=== PATIENT | male | born 1945 | race Caucasian/White ===

== ENCOUNTER 2016-09-19 06:54 | Inpatient (IN) ==
[2016-09-14 16:29] LABS: Appearance,Urine CLEAR; Bilirubin,Urine NEG (NEG); Color,Urine YELLOW; Glucose,Urine (UA) NEGATIVE (NEG); Leukocyte Esterase,Urine NEG /uL (NEG); Nitrate,Urine NEG (NEG); Protein,Urine NEG (NEG); Specific Gravity,Urine 1.018 (1.000-1.035); Urine Blood NEG mg/dL (<0.03); Urobilinogen,Urine NEG (NEG)
[2016-09-14 17:12] LABS: Basophils # (Auto) 0 K/mcL (0.0-0.3); Basophils % (Auto) 0.3 % (0.0-2.0); Eosinophils # (Auto) 0.2 K/mcL (0.0-0.7); Eosinophils % (Auto) 1.9 % (0.0-7.0); Granulocytes % (Auto) 74.4 % (38.0-78.0); Lymphocytes # (Auto) 1.5 K/mcL (1.5-4.8); Lymphocytes % (Auto) 13.1 % (15.5-49.0); Mean Cell Volume 97.1 fL (80.0-100.0); Mean Corpuscular HGB Conc 33.2 g/dL (31.0-36.0); Mean Corpuscular Hemoglobin 32.2 pg (26.0-34.0); Monocytes # (Auto) 1.1 K/mcL (0.1-0.9); Monocytes % (Auto) 10.3 % (1.0-12.0); Platelet Count 343 K/mcL (140-440); RBC 4.27 M/mcL (4.50-5.90); Red Cell Distribution Width 15.4 % (11.5-14.5)
[2016-09-14 17:54] LABS: Blood Urea Nitrogen 31 mg/dl (8-23)
[~2016-09-19 06:54] MED LIST: PREGABALIN 75 MG CAPSULE PO SCH; oxyCODONE 10 MG TAB.ER.12H PO SCH
[2016-09-19] MEDS ORDERED: GENTAMICIN SULFATE 800 MG/20 ML VIAL IR ONE (08:59)
[2016-09-19] MEDS ORDERED: CLINDAMYCIN 900 MG in DEXTROSE 5% IN WATER 50 ML IV SCH ×3 (09:00→17:00)
[2016-09-19] MEDS ORDERED: fentaNYL 250 MCG/5 ML VIAL IV ONE (09:15)
[2016-09-19] MEDS ORDERED: LIDOCAINE HCL/PF 100 MG/5 ML SYRINGE IV ONE (09:15)
[2016-09-19] MEDS ORDERED: ROCURONIUM 10 MG/ML ML IV ONE (09:15)
[2016-09-19] MEDS ORDERED: MIDAZOLAM 5 MG/5 ML VIAL IV ONE (09:15)
[2016-09-19] MEDS ORDERED: ONDANSETRON 4 MG/2 ML VIAL IV ONE (09:15)
[2016-09-19] MEDS ORDERED: DEXAMETHASONE 10 MG/ML VIAL IV ONE (09:15)
[2016-09-19] MEDS ORDERED: SUCCINYLCHOLINE 20 MG/ML ML IV ONE (09:15)
[2016-09-19] MEDS ORDERED: TRANEXAMIC ACID 1,000 MG/10 ML VIAL IV ONE ×2 (09:15→11:12)
[2016-09-19] MEDS ORDERED: METOPROLOL TARTRATE 5 MG/5 ML VIAL IV ONE (09:15)
[2016-09-19] MEDS ORDERED: PROPOFOL 200 MG/20 ML VIAL IV ONE (09:15)
[2016-09-19] MEDS ORDERED: ROPIVACAINE HCL/PF 30 ML VIAL IJ ONE (09:15)
[2016-09-19] MEDS ORDERED: PHENYLEPHRINE 10 MG/ML VIAL IV ONE (09:15)
[2016-09-19] MEDS ORDERED: PROMETHAZINE 25 MG/ML VIAL IV PRN (10:34)
[2016-09-19] MEDS ORDERED: LACTATED RINGERS 250 ML IV PRN (10:34)
[2016-09-19] MEDS ORDERED: PROMETHAZINE 25 MG/ML VIAL IM PRN (10:34)
[2016-09-19] MEDS ORDERED: NALOXONE HCL 0.4 MG/ML VIAL IV PRN (10:34)
[2016-09-19] MEDS ORDERED: MEPERIDINE 25 MG/ML SYRINGE IV PRN (10:34)
[2016-09-19] MEDS ORDERED: BENZOCAINE/MENTHOL 1 LOZENGE PO PRN ×3 (10:34→12:45)
[2016-09-19] MEDS ORDERED: fentaNYL 100 MCG/2 ML VIAL IV PRN (10:34)
[2016-09-19] MEDS ORDERED: HYDROmorphone 2 MG/ML SYRINGE IV PRN ×3 (10:34→12:45)
[2016-09-19] MEDS ORDERED: ONDANSETRON 4 MG/2 ML VIAL IV PRN ×3 (10:34→12:45)
[2016-09-19] MEDS ORDERED: METHOCARBAMOL 1,000 MG/10 ML VIAL IV PRN (10:34)
[2016-09-19] MEDS ORDERED: FLUMAZENIL 0.1 MG/ML ML IV PRN (10:34)
[2016-09-19] MEDS ORDERED: MEPERIDINE 50 MG/ML SYRINGE IM PRN (10:34)
[2016-09-19] MEDS ORDERED: IPRATROPIUM/ALBUTEROL 3 ML AMPUL.NEB NEB PRN (10:34)
[2016-09-19] MEDS ORDERED: diphenhydrAMINE 50 MG/ML VIAL IV PRN (10:34)
[2016-09-19] MEDS ORDERED: ePHEDrine 50 MG/ML AMPUL IV PRN (10:34)
[2016-09-19] MEDS ORDERED: LACTATED RINGERS 1,000 ML IV SCH (10:45)
--- NOTE | 2016-09-19 11:10 | Brief Operative Note ---
Date of procedure: 09/19/16 Pre-op diagnosis: right shoulder oa, biceps tendonitis Post-op diagnosis: same Procedure: right total shoulder arthroplasty, biceps tenodesis soft tissue Grafts/Implants: Yes Anesthesia: GETA Complications: none Surgeon: Isdiro Victoria Aboriginal Liaison Officer: Manda Kevin Estimated blood loss (cc): 100 Specimens Removed/Pathology: none sent Condition: stable Disposition: PACU
--- NOTE | 2016-09-19 11:11 | Discharge Summary ---
Ortho Discharge - TSA - Patient Instructions Diet: Regular Diet Activity: non weight bearing Total Shoulder Protocol: Leave immobilizer in place except for bathing and ROM. Abduction pillow. Continue to wear sling until seen by physician. Codman Pendulum : These exercises use momentum produced by your body to move your shoulder joint. Bend your knees and shift your weight to your front leg, then back, allowing your arm to swing in the same directions. Using the same technique, alternately shift your weight between your right and left legs, allowing your arm to swing from side to side. These exercises are also performed in counterclockwise and clockwise circular motions. Typically these exercises are performed several times per day, for a set number repetitions or minutes, such as 20 times in a row or 5 minutes at a time. Dressing Care: May shower in 2 days - Follow Up Plan Disposition: Home, Self-Care Prognosis: Good Rehab Potential: Good I certify that the patient requires SNF services: No Overall status at discharge: patient is progressing back to baseline
[2016-09-19] MEDS ORDERED: KETOROLAC 15 MG/ML VIAL IV PRN ×2 (11:12→12:45)
[2016-09-19] MEDS ORDERED: METHOCARBAMOL 750 MG TABLET PO PRN ×2 (11:12→12:45)
[2016-09-19] MEDS ORDERED: POLYETHYLENE GLYCOL 3350 17 GM PACKET PO PRN ×2 (11:12→12:45)
[2016-09-19] MEDS ORDERED: ONDANSETRON ODT 4 MG TABLET SL PRN ×2 (11:12→12:45)
[2016-09-19] MEDS ORDERED: FLEETS ADULT ENEMA PR PRN ×2 (11:12→12:45)
[2016-09-19] MEDS ORDERED: HYDROcodone/APAP 10/325MG TABLET PO PRN (11:12)
[2016-09-19] MEDS ORDERED: BISACODYL 10 MG SUPP.RECT PR PRN ×2 (11:12→12:45)
[2016-09-19] MEDS ORDERED: MAGNESIUM HYDROXIDE 30 ML ORAL.SUSP PO PRN ×2 (11:12→12:45)
[2016-09-19] MEDS ORDERED: ceFAZolin 1 GM VIAL IV SCH (11:15)
[2016-09-19] MEDS ORDERED: 0.9 % SODIUM CHLORIDE 1,000 ML IV SCH (11:15)
--- NOTE | 2016-09-19 12:22 | Operative Note ---
DATE OF OPERATION: 09/19/2016 PREOPERATIVE DIAGNOSES: 1. Right shoulder osteoarthritis. 2. Right shoulder proximal biceps tendinitis. POSTOPERATIVE DIGNOSES: 1. Right shoulder osteoarthritis. 2. Right shoulder proximal biceps tendinitis. PROCEDURES: 1. Right total shoulder arthroplasty. 2. Right shoulder proximal biceps soft tissue tenodesis. SURGEON: Hayden Victoria M.D. EQUALIZER OPERATOR SURGEON: Manda Kevin PA-C ANESTHESIA: General. ESTIMATED BLOOD LOSS: 100 mL COMPLICATIONS: None noted. SPECIMENS REMOVED: None. DRAINS: None. IMPLANTS: DePuy CMW2 bone cement 20 grams, Global Dundee Peg Glenoid, Premieron X-Linked polyethylene 52 mm, DePuy Global Unite anatomic proximal body 135 degrees size 18 porocoat, DePuy Global Unite porocoat standard stem size 16, DePuy Global Unite eccentric humeral head size 52 x 21. INDICATIONS: The patient has had a longstanding history of worsening pain in the shoulder that has failed conservative treatment. Radiographs have confirmed advanced degenerative joint disease. After a long discussion about treatment options, the patient elected to proceed with a total shoulder arthroplasty. The risks and benefits were discussed with the patient in detail including, but not limited to, the risks of anesthesia, problems with the heart or lungs related to anesthesia, infection, compromise or injury to the nerves and blood vessels, deep venous thrombosis, pulmonary embolism, pneumonia, continued pain after surgery, worsening pain or symptoms after surgery, swelling, loss of motion, instability, fracture, arm length discrepancy, and need for repeat surgery. DESCRIPTION OF PROCEDURE: The patient was seen in the pre-anesthesia waiting room where all questions were answered and the correct side and site were identified and marked. The patient was transferred to the operating room and administered the anesthetic and given pre-operative antibiotics. A time-out was then called. The patient was placed in the modified beach chair position with all prominences well padded. The extremity was prepped and draped from the fingers up to the neck. A standard deltopectoral skin incision was created. Dissection was carried down to the deltopectoral groove and the cephalic vein was isolated medially and retracted laterally with the deltoid. Retractors were placed and the coracobrachialis was split up to the coracoacromial ligament allowing retraction of the conjoined tendon. We split the subscapularis 1 cm medial to the bicipital groove and extended the split into the rotator interval. This was tagged for later repair. The biceps was cut and a soft tissue tenodesis was performed into the anterior shoulder with #2 FiberWire. A capsular release was performed in a posterior subperiosteal direction along the humerus. The humeral head was then dislocated. Osteophytes were removed around the humeral neck and a capsular release was performed. Attention was then turned to the glenoid. Retractors were placed for optimal visualization and the labrum was excised in its entirety. A centralizing Steinmann pin was placed just into the posterior inferior quadrant in a standard fashion. We reamed over the pin to remove all the cartilage and get to a good base for the prosthesis. The drill was then placed over for the central peg. The glenoid was sized and surface was inspected to confirm conformity. The template base-plate was used to drill the three additional pegs, anchoring each with the anti-rotation peg. All bleeding was stopped with epinephrine soaked sponges. Next, we then cemented the anchor peg glenoid with DBX bone paste placed around the anchor peg and Palacos cement in the three additional peg holes. We allowed the cement to harden and checked the stability and placement of the glenoid. Attention was then turned back to the humerus. The humeral head was sized and version of the head was matched. We placed the guide evaluating the quadrants and drilled a pin through the center of the head exiting the lateral cortex of the proximal humerus. We then reamed the humeral head with appropriate depth. The bone quality was adequate. The humeral head trial was placed and fit appropriately. The cruciate punch was placed into the drilled canal. The press fit humeral prosthesis was impacted into place. A final check confirmed adequate motion, tension, and stability. We irrigated with 3 liters of antibiotic saline and closed the subscapularis with # 2 FiberWire. We irrigated again and closed the deltopectoral interval with several # 0 Vicryl figure of eight sutures. The subcutaneous layer was closed with 2-0 Vicryl and the skin was closed with 4-0 Monocryl in a subcuticular fashion. A sterile pressure dressing was applied and the patient was placed into an abduction sling. All needle and sponge counts were correct. The patient was transferred to the recovery room in stable condition. YANNI:[email or web address] Job ID: [id number] Doc ID: [id number] Hayden Victoria MD
[2016-09-19] MEDS ORDERED: LORazepam 2 MG/ML VIAL IV PRN (12:40)
[2016-09-19] MEDS ORDERED: oxyCODONE 10 MG TAB.ER.12H PO SCH (12:45)
[2016-09-19] MEDS ORDERED: PREGABALIN 75 MG CAPSULE PO SCH (12:45)
--- NOTE | 2016-09-19 13:26 | XRay Report ---
CLINICAL INFORMATION: Reason for Exam:Post-OP Total Shoulder COMPARISON: None. FINDINGS: Shoulder arthroplasty changes show anatomic alignment. No osseous abnormality. Soft tissues swelling seen as expected IMPRESSION: Negative Interpreted and Authenticated by: Isidro Dumont 09/19/16
[2016-09-19] MEDS: 0.9 % SODIUM CHLORIDE 10 ML SYRINGE IV SCH ×2 (13:55→23:17)
[2016-09-19] MEDS: 0.9 % SODIUM CHLORIDE 1,000 ML IV SCH ×2 (13:56→19:54)
[2016-09-19] MEDS ORDERED: 0.9 % SODIUM CHLORIDE 10 ML SYRINGE IV SCH (14:00)
[2016-09-19] MEDS: CLINDAMYCIN 900 MG in DEXTROSE 5% IN WATER 50 ML IV SCH (17:13)
[2016-09-19] MEDS ORDERED: traMADol 50 MG TABLET PO PRN (20:58)
[2016-09-19] MEDS ORDERED: SENNOSIDES 1 TABLET PO SCH (21:00)
[2016-09-19] MEDS ORDERED: DOCUSATE SODIUM 100 MG CAPSULE PO SCH (21:00)
[2016-09-19] MEDS ORDERED: ALBUTEROL SULFATE 1 PUFF INHALER INH PRN (21:00)
[2016-09-19] MEDS: METOPROLOL TARTRATE 50 MG TABLET PO SCH (21:54)
[2016-09-19] MEDS: DOCUSATE SODIUM 100 MG CAPSULE PO SCH (21:54)
[2016-09-19] MEDS: SENNOSIDES 1 TABLET PO SCH (21:55)
[2016-09-19] MEDS: Triazolam 0.25 MG PO PRN (21:57)
[2016-09-20] MEDS: HYDROcodone/APAP 10/325MG TABLET PO PRN ×5 (00:08→18:49)
[2016-09-20] MEDS: CLINDAMYCIN 900 MG in DEXTROSE 5% IN WATER 50 ML IV SCH (00:31)
[2016-09-20] MEDS: 0.9 % SODIUM CHLORIDE 1,000 ML IV SCH (04:04)
[2016-09-20] MEDS: 0.9 % SODIUM CHLORIDE 10 ML SYRINGE IV SCH ×3 (05:07→22:01)
--- NOTE | 2016-09-20 06:44 | Orthopedic Progress Note ---
Subjective Patient information: Note initiated : 09/20/16 at 6:43 am Service Date, if different from initiated Date: [] Patient: Matias Collado 71 y/o M admitted on 09/19/16 for Right Total Shoulder Arthroplasty, Poss Reverse, . Chief Complaint: [] Interval history: doing ok. pain under control Objective Vital signs: Vital Signs Temp Pulse Pulse Resp BP Pulse Ox 09/20/16 04:00 97.7 F 83 18 119/77 96 09/20/16 00:00 98.1 F 79 18 120/80 94 09/19/16 21:15 94 09/19/16 21:14 94 09/19/16 20:00 98.1 F 89 18 121/79 95 09/19/16 19:14 86 09/19/16 14:55 97.9 F 18 130/86 96 09/19/16 14:15 97.8 F 18 118/81 94 09/19/16 13:40 97.9 F 18 113/76 94 09/19/16 13:11 18 113/79 93 09/19/16 12:56 20 121/77 90 09/19/16 12:41 97.6 F 20 115/77 93 09/19/16 12:26 97.6 F 20 117/84 93 09/19/16 12:18 97.8 F 120 H 12 106/83 93 09/19/16 12:03 97.5 F 124 H 12 110/68 93 09/19/16 11:47 97.2 F 129 H 12 95/69 93 09/19/16 11:43 97.6 F 131 H 12 109/64 94 09/19/16 11:38 97.2 F 132 H 12 91/61 94 09/19/16 11:33 97.2 F 111 H 12 84/62 94 09/19/16 07:28 97.1 F 16 124/88 95 Intake and Output 09/19/16 09/20/16 09/20/16 21:59 05:59 13:59 Intake Total 456 / 456 1960 / 1960 1493 / 1493 Output Total 900 / 900 500 / 500 Balance -444 / -444 1460 / 1460 1493 / 1493 Intake: IV 56 / 56 1000 / 1000 1493 / 1493 Sodium Chloride 0.9% 1, 1000 / 1000 000 ml @ 125 mls/hr IV . Q8H KEN Rx#:[id number] Cleocin 900 mg In 56 / 56 Dextrose 5% in Water 50 ml @ 100 mls/hr IV Q8H KEN Rx#:[id number] Oral 400 / 400 960 / 960 Output: Void Amount 900 / 900 500 / 500 Other: Weight 211 lb 3.2 oz Intake & Output: Intake & Output 09/19/16 09/20/16 09/20/16 21:59 05:59 13:59 Intake Total 456 / 456 1960 / 1960 1493 / 1493 Output Total 900 / 900 500 / 500 Balance -444 / -444 1460 / 1460 1493 / 1493 Weight 211 lb 3.2 oz Intake: IV 56 / 56 1000 / 1000 1493 / 1493 Sodium Chloride 0.9% 1, 1000 / 1000 000 ml @ 125 mls/hr IV . Q8H KEN Rx#:[id number] Cleocin 900 mg In 56 / 56 Dextrose 5% in Water 50 ml @ 100 mls/hr IV Q8H KEN Rx#:[id number] Oral 400 / 400 960 / 960 Output: Void Amount 900 / 900 500 / 500 Incision: Yes healing Incision clean and dry: Yes Dressing: Yes clean, Yes dry, Yes intact Weight bearing status: non Neurological exam IM: Yes alert, Yes oriented X3, Yes motor sensory intact, Yes neurovascular intact Extremities exam IM: No calf tenderness, Yes Foot pink and warm, Yes neurovascular intact - Labs CBC & BMP: 09/20/16 05:00 09/14/16 15:07 Labs: 09/20/16 09/14/16 05:00 15:07 Hgb 12.1 L 13.8 Hct 34.5 L 41.5 Assessment and Plan (1) Osteoarthritis, shoulder pod 1 s/p tsa doing well pain control pt home today Status: Acute
[2016-09-20] MEDS: DILTIAZEM 120 MG CAP.XL.24H PO SCH ×2 (07:28→07:37)
[2016-09-20] MEDS: ASPIRIN 325 MG ENTERIC COATED TABLET PO SCH (07:59)
[2016-09-20] MEDS: FERROUS SULFATE 325 MG TABLET PO SCH (07:59)
[2016-09-20] MEDS: LOSARTAN 50 MG TABLET PO SCH (07:59)
[2016-09-20] MEDS: ALLOPURINOL 300 MG TABLET PO SCH (07:59)
[2016-09-20] MEDS: METOPROLOL TARTRATE 50 MG TABLET PO SCH ×2 (07:59→22:01)
[2016-09-20] MEDS: DOCUSATE SODIUM 100 MG CAPSULE PO SCH ×2 (08:00→22:01)
[2016-09-20] MEDS ORDERED: 0.9 % SODIUM CHLORIDE 250 ML IV ONE (15:55)
--- NOTE | 2016-09-20 16:04 | Internal Medicine Consult Note ---
Medical - CN: HPI - Data of Consult Consult date: 09/20/16 Requesting Physician: Isidro Victoria Primary Care Provider: Joey Mendoza Family Provider: Joey Mendoza - Consult Narrative Reason for consult: Afib with RVR History of present illness: Mr. Collado is a 71 year old male with h/o CHF, HTN, afib, Ankylosing spondilitis , who was admitted to the Ortho service for right shoulder arthroplasty. The patient underwent the procedure yesterday, after the procedure the patient was in Afib with RVR, he was also short of breath and needed to use his bipap. This AM when the PT tried to work with him the patients HR went up again to 140- 150. Medicine was therefore consulted for further evaluation. The patient has h/o chf and afib, which is a chr issue, he follows with Dr Robins. He takes metoprolol 50mg bid, [id number] qd, for rate control, he is also on ASA 325 for anticoagulation/ cva prophylaxis as per his rn utilization management um. He missed his dose yesterday it seems, and was NPO yesterday, he did not take ASA for 7 days prior to surgery. He also has ankylosing spondilitys and reports moderate to severe levels of pain in the shoulder and hte back. This AM his HR h as been much better than yesterdfay and his resting HR is at baseline. Only when he moves or is excited does his HR go up. He denies any dizziness, chest pain, palpitations, shortness of breath. CC: Isidro Victoria Review of systems: CONSTITUTIONAL: No weight loss, fever, chills, weakness or fatigue. HEENT: Eyes: No visual loss, blurred vision, double vision or yellow sclerae. Ears, Nose, Throat: No hearing loss, sneezing, congestion, runny nose or sore throat. SKIN: No rash or itching. CARDIOVASCULAR: No chest pain, chest pressure or chest discomfort. No palpitations or edema. RESPIRATORY: No shortness of breath, cough or sputum. GASTROINTESTINAL: No nausea, vomiting or diarrhea or constipation. No abdominal pain or blood in stools No Mary Jo. GENITOURINARY: Denies Burning on urination. Blood in urine, or foul smelling urine NEUROLOGICAL: No headache, dizziness, syncope, paralysis, tremors, numbness or tingling in the extremities. No change in bowel or bladder control. MUSCULOSKELETAL: chr back pain and stiffness, right shoulder pain. HEMATOLOGIC: No bleeding or bruising. No enlarged nodes PSYCHIATRIC: No depression or anxiety. ENDOCRINOLOGIC: No reports of sweating, cold or heat intolerance. No polyuria or polydipsia. ALLERGIES: No hives, eczema or rhinitis. Skin: No rash, no jaundice, cyanosis or pallor. Medical - CN: [facility] Medical history: Medical History (Last Updated 09/20/16 @ 06:44 by Isidro Victoria MD) Chronic kidney disease, stage III (moderate) (Chronic) Hypercalcemia (Chronic) Hypertensive renal disease (Chronic) Chronic kidney disease, stage II (mild) (Chronic) Hyponatremia (Chronic) Acute renal failure (Chronic) Dyslipidemia (Acute) Hypertension (Chronic) Adhesive capsulitis of shoulder (Acute) Erectile dysfunction (Acute) Adenocarcinoma of prostate (Acute) Osteopenia (Acute) Osteoarthritis (Acute) Atrial fibrillation (Acute) Hemoptysis (Acute) Internal hemorrhoids (Acute) Edema (Acute) Anemia (Acute) Other seborrheic dermatitis (Acute) Telogen effluvium (Acute) Gynecomastia, male (Acute) Tachycardia (Acute) Reactive airway disease (Acute) Decreased hearing (Acute) Essential tremor (Acute) Surgical history: Past Surgical History (Last Updated 08/17/16 @ 14:19 by [place]) Bowel perforation (Acute 06/07/05) History of radiation therapy (Acute) Family history: reviewed and not pertinent Medical - CN: Meds Home Medications Medication Instructions Recorded Confirmed Type albuterol sulfate HFA 90 90 mcg INHALATION Q6H PRN 02/23/15 09/19/16 History mcg/actuation aerosol inhaler aspirin 325 mg tablet,delayed 325 mg PO QDAY 02/23/15 09/19/16 History release diltiazem CD 120 mg 120 mg PO QDAY 90 Days 03/02/15 09/19/16 History capsule,extended release 24 hr metoprolol tartrate 50 mg tablet 50 mg PO BID tab 03/02/15 09/19/16 History ferrous sulfate 325 mg (65 mg 325 mg PO DAILY tab 03/31/15 09/19/16 History iron) tablet multivitamin tablet 1 tab PO QDAY tab 03/31/15 09/19/16 History allopurinol 300 mg tablet 300 mg PO QDAY 07/13/16 06/20/17 History losartan 50 mg tablet 50 mg PO QDAY tab 10/13/15 09/19/16 History Triazolam [Halcion] 0.25 mg PO HSP PRN 09/14/16 09/19/16 History traMADol [Ultram] 50 mg PO TIDP PRN 09/14/16 09/19/16 History HYDROcodone/APAP 10/325MG [[place] 1 - 2 tab PO Q4H PRN #60 tablet 09/19/16 Rx 10/325Mg] Allergies Allergy/AdvReac Type Severity Reaction Status Date / Time cephalexin Allergy Mild Itching Verified 09/19/16 09:02 codeine Allergy Mild Rash Verified 09/14/16 14:54 morphine Allergy Mild Itching Verified 09/14/16 14:48 colchicine [From Colcrys] Allergy Unknown Unknown Verified 09/14/16 14:54 hydrochlorothiazide Allergy Unknown Unknown Verified 09/14/16 14:54 [From Zestoretic] lisinopril [From Zestoretic] Allergy Unknown Unknown Verified 09/14/16 14:54 rivaroxaban [From Xarelto] Allergy Unknown Unknown Verified 09/14/16 14:54 Sulfa (Sulfonamide Allergy Unknown Unknown Verified 09/14/16 14:54 Antibiotics) Medical - CN: Exam - Constitutional Vitals: Temp Pulse Resp BP Pulse Ox 98.2 F 89 18 113/72 96 09/20/16 12:00 09/20/16 12:00 09/20/16 12:00 09/20/16 12:00 09/20/16 12:00 Exam: GENERAL: The patient is a well-developed, well-nourished in no apparent distress. Is alert and oriented x3. VITAL SIGNS: Reviewed and as noted elsewhere. HEENT: Head is normocephalic and atraumatic. Extraocular muscles are intact. Pupils are equal, round, and reactive to light. Nares appeared normal. Mouth appears any without lesions. Mucous membranes are moist. NECK: Normal to inspection, Supple, No lymphadenopathy or thyromegaly. LUNGS: Air entry equal on both sides, no wheezing, crackles or rhonchi noted. No accessory muscles of respiration HEART: Regular rate and rhythm irregularl, S1 and S2 heard, no Gallop, S3 or Rub Noted, No Gross murmur heard. ABDOMEN: Soft, nontender, and nondistended. Positive bowel sounds. No hepatosplenomegaly was noted. EXTREMITIES: No cyanosis, clubbing, rash, lesions or edema. NEUROLOGIC: Cranial nerves II through XII are grossly intact. Motor and Sensory System Grossly Intact PSYCHIATRIC: Normal affect, Normal Mood. Appropriate Behavior. SKIN: No ulceration or wounds noted, No jaundice, No rash noted. Medical - CN: Result - Labs CBC & Chem 7: 09/20/16 05:00 09/14/16 15:07 Labs: Short CBC 09/20/16 Range/Units 05:00 Hgb 12.1 L (13.5-16.5) g/dL Hct 34.5 L (41.0-55.0) % - EKG Data EKG comments: 09/20/16 16:28 EKG done today, reviewed, afib with RVR HR 105, no significant change from previous EKG. Medical - CN: A/P - Narrative A/P Narrative: Afib with RVR: Post op afib with RVR in non cardiac surgery likely related to combination of missing medication dose, dehydration and pain. IV fluids for now , resume home meds and have adequate pain control. will monitor. If HR remains high, then will increase the dose of metoprolol to 75mg bid, and cut back losartan to 25 (as per last nephrology note) Shortness of breath: in the post op period, necissating the use of cpap. will get CXR for further eval, during my eval today, he was off bipap and was saturationg > 94% on room air throughout the entire history and exam. HTN: BP stable, continue present meds CKD creat is stable, has ckd, follows with Dr Morrison CHF: LEEF 40% last year, biatrial enlargement. Patient does not seem clinically to be in overt heart failure, no s3 s5, no edema in extremities, no coarse crackles noted on exam. Continue home dose and monitor. Anticipate d/c home in AM if HR remains stable, and no new issues. Thank you for allowing me to participate in patients care Social History - Social History marital status: occupational status: retired - Tobacco smoking status: Former smoker - Alcohol alcohol intake frequency: 0-2 drinks per day
--- NOTE | 2016-09-20 18:29 | XRay Report ---
CLINICAL INFORMATION: Shortness of breath COMPARISON: None. FINDINGS: Moderate cardiomegaly is appreciated. Slight widening mediastinum. Pulmonary vessels are normal. Minor bibasilar airspace disease is most likely atelectasis. No effusions IMPRESSION: Moderate cardiomegaly but no evidence of CHF. Minor bibasilar atelectasis Interpreted and Authenticated by: Isidro Dumont 09/20/16
[2016-09-20] MEDS ORDERED: METOPROLOL TARTRATE 25 MG TABLET PO ONE (18:47)
[2016-09-20] MEDS: SENNOSIDES 1 TABLET PO SCH (22:01)
[2016-09-20] MEDS: Triazolam 0.25 MG PO PRN (22:15)
[2016-09-21] MEDS: 0.9 % SODIUM CHLORIDE 10 ML SYRINGE IV SCH (05:27)
--- NOTE | 2016-09-21 06:10 | Orthopedic Progress Note ---
Subjective Patient information: Note initiated : 09/21/16 at 6:08 am Service Date, if different from initiated Date: [] Patient: Matias Collado 71 y/o M admitted on 09/19/16 for Right Total Shoulder Arthroplasty, Poss Reverse, . Chief Complaint: [] Interval history: doing better today. pain under control Objective Vital signs: Vital Signs Temp Pulse Pulse Resp BP Pulse Ox 09/21/16 04:00 97.4 F 102 H 20 115/77 09/21/16 03:54 61 60 09/21/16 00:00 97.8 F 122 H 120 H 16 133/91 96 09/20/16 20:00 98.3 F 91 H 89 18 121/73 97 09/20/16 16:00 97.8 F 103 H 18 129/88 97 09/20/16 12:00 98.2 F 84 89 18 113/72 96 09/20/16 08:00 97.7 F 95 H 20 134/78 94 09/20/16 07:09 96 Intake and Output 09/20/16 09/21/16 09/21/16 21:59 05:59 13:59 Intake Total 1890 / 1890 600 / 600 Output Total 800 / 800 1375 / 1375 Balance 1090 / 1090 -775 / -775 Intake: IV 250 / 250 Sodium Chloride 0.9% 250 250 / 250 ml @ Wide Open IV BOLUS ONE Rx#:[id number] Oral 1640 / 1640 600 / 600 Output: Void Amount 800 / 800 1375 / 1375 Other: Meal Lunch Percent of Meal Consumed 100% Weight 211 lb 3.2 oz Intake & Output: Intake & Output 09/20/16 09/21/16 09/21/16 21:59 05:59 13:59 Intake Total 1890 / 1890 600 / 600 Output Total 800 / 800 1375 / 1375 Balance 1090 / 1090 -775 / -775 Weight 211 lb 3.2 oz Intake: IV 250 / 250 Sodium Chloride 0.9% 250 250 / 250 ml @ Wide Open IV BOLUS ONE Rx#:[id number] Oral 1640 / 1640 600 / 600 Output: Void Amount 800 / 800 1375 / 1375 Other: Meal Lunch Percent of Meal Consumed 100% Incision: Yes healing Incision clean and dry: Yes Dressing: Yes clean, Yes dry, Yes intact Weight bearing status: non Neurological exam IM: Yes alert, Yes normal gait, Yes oriented X3, Yes motor sensory intact, Yes neurovascular intact Extremities exam IM: No calf tenderness, Yes Foot pink and warm, Yes neurovascular intact - Labs CBC & BMP: 09/20/16 05:00 09/14/16 15:07 Labs: 09/21/16 09/20/16 09/14/16 04:02 05:00 15:07 Hgb Pending 12.1 L 13.8 Hct Pending 34.5 L 41.5 Assessment and Plan (1) Osteoarthritis, shoulder pod 2 s/p tsa doing well pain control pt home when cleared by medicine Status: Acute
[2016-09-21] MEDS: DILTIAZEM 120 MG CAP.XL.24H PO SCH ×2 (08:31→09:53)
[2016-09-21] MEDS: LOSARTAN 50 MG TABLET PO SCH (08:32)
[2016-09-21] MEDS: ALLOPURINOL 300 MG TABLET PO SCH (08:32)
[2016-09-21] MEDS: FERROUS SULFATE 325 MG TABLET PO SCH (08:32)
[2016-09-21] MEDS: DOCUSATE SODIUM 100 MG CAPSULE PO SCH (08:32)
[2016-09-21] MEDS: METOPROLOL TARTRATE 50 MG TABLET PO SCH (08:32)
[2016-09-21] MEDS: ASPIRIN 325 MG ENTERIC COATED TABLET PO SCH (08:32)
--- NOTE | 2016-09-21 09:24 | Internal Med Progress Note ---
Medical - PN: Subj Patient information: Note initiated : 09/21/16 at 9:20 am Service Date, if different from initiated Date: [] Patient: Matias Collado 71 y/o M admitted on 09/19/16 for Right Total Shoulder Arthroplasty, Poss Reverse, . Chief Complaint: [] Interval history: The patient seen examined, overnight HR was more or less in the normal range, patient HR goes up when he ambulate around, and is in pain, otherwise his HR is normal. His vitals are stable, no hypoxia, CXR is neg, The patient does not endorse any new complaints. Pertinent ROS: Denies headache, dizziness Denies chest pain, palpitations Denies cough or shortness of breath Denies abdominal pain, nausea or vomiting. - Constitutional Vitals: Vital Signs Temp Pulse Resp BP Pulse Ox 98.5 F 86 18 122/76 98 09/21/16 08:00 09/21/16 08:00 09/21/16 08:00 09/21/16 08:00 09/21/16 08:00 Period Temp Pulse Resp BP Sys/Mirza Pulse Ox Last 24 Hr 97.4 F-98.5 F 60-122 16-20 113-133/72-91 95-98 Intake and Output 09/20/16 09/21/16 09/21/16 21:59 05:59 13:59 Intake Total 1890 / 1890 600 / 600 Output Total 800 / 800 1375 / 1375 Balance 1090 / 1090 -775 / -775 Weight 211 lb 3.2 oz Intake & Output: Intake & Output 09/20/16 09/21/16 09/21/16 21:59 05:59 13:59 Intake Total 1890 / 1890 600 / 600 Output Total 800 / 800 1375 / 1375 Balance 1090 / 1090 -775 / -775 Weight 211 lb 3.2 oz Intake: IV 250 / 250 Sodium Chloride 0.9% 250 250 / 250 ml @ Wide Open IV BOLUS ONE Rx#:[id number] Oral 1640 / 1640 600 / 600 Output: Void Amount 800 / 800 1375 / 1375 Other: Meal Lunch Percent of Meal Consumed 100% Medical - PN: Obj Da - Labs CBC & Chem 7: 09/21/16 04:02 09/14/16 15:07 Labs: Abnormal Lab Results 09/21/16 09/20/1609/19/17 04:02 05:00 07:31 Hgb 11.3 L 12.1 L Hct 33.4 L 34.5 L POC BUN 29 H Meds: Medications Hydrocodone Bitart/Acetaminophen ([place] 10/325mg) 0 tab PO Q4HP PRN PRN Reason: Pain Last Admin: 09/20/16 18:49 Dose: 2 tab Albuterol Sulfate (Ventolin) 1 puff INH Q6HP PRN PRN Reason: Shortness Of Breath Allopurinol (Zylopriim) 300 mg PO DAILY [facility] [place] Last Admin: 09/21/16 08:32 Dose: 300 mg Aspirin (Ecotrin) 325 mg PO DAILY [facility] [place] Last Admin: 09/21/16 08:32 Dose: 325 mg Bisacodyl (Dulcolax) 10 mg WA Q2-3DAYS PRN PRN Reason: Constipation Diltiazem HCl (Cardizem Cd) 120 mg PO DAILY [facility] [place] Last Admin: 09/21/16 08:31 Dose: 120 mg Diltiazem HCl (Cardizem Cd) 120 mg PO DAILY [facility] [place] Last Admin: 09/20/16 07:37 Dose: Not Given Docusate Sodium (Colace) 100 mg PO BID [facility] [place] Last Admin: 09/21/16 08:32 Dose: 100 mg Ferrous Sulfate (Ferrous Sulfate) 325 mg PO DAILY [facility] [place] Last Admin: 09/21/16 08:32 Dose: 325 mg Hydromorphone HCl (Dilaudid) 0 mg IV Q2HP PRN PRN Reason: Pain Ketorolac Tromethamine (Toradol) 15 mg IV Q6HP PRN PRN Reason: Pain Stop: 09/21/16 11:14 Last Admin: 09/21/16 00:28 Dose: 15 mg Lorazepam (Ativan) 0.5 mg IV Q2-4HP PRN PRN Reason: ANXIETY/SEDATION Losartan Potassium (Cozaar) 50 mg PO DAILY [facility] [place] Last Admin: 09/21/16 08:32 Dose: 50 mg Magnesium Hydroxide (Milk Of Magnesia) 30 ml PO BIDP PRN PRN Reason: Constipation Methocarbamol (Robaxin) 750 mg PO Q6HP PRN PRN Reason: Muscle Spasm Last Admin: 09/20/16 15:13 Dose: 750 mg Metoprolol Tartrate (Lopressor) 50 mg PO BID [facility] [place] Last Admin: 09/21/16 08:32 Dose: 50 mg Ondansetron HCl (Zofran) 4 mg IV Q4HP PRN PRN Reason: Nausea And Vomiting Ondansetron HCl (Zofran Odt) 4 mg SL Q4HP PRN PRN Reason: Nausea And Vomiting Triazolam 0.25 Mg 1 dose PO HSP PRN PRN Reason: Insomnia Last Admin: 09/20/16 22:15 Dose: 1 dose Polyethylene Glycol (Miralax) 17 gm PO DAILYP PRN PRN Reason: Constipation Senna (Senokot) 2 tab PO HS [facility] [place] Last Admin: 09/20/16 22:01 Dose: 2 tab Sodium Biphosphate/Sodium Phosphate (Fleets Adult) 1 dose WA Q3-4DAYS PRN PRN Reason: Constipation Sodium Chloride (Saline Flush) 10 ml IV Q8 [facility] [place] Last Admin: 09/21/16 05:27 Dose: 10 ml Throat Lozenges (Cepacol) 1 lozenge PO PRN PRN PRN Reason: Sore Throat Tramadol HCl (Ultram) 50 mg PO TIDP PRN PRN Reason: Pain Medical - PN: A/P - Time Spent With Patient Total time spent is greater than 50% in coordination of care (as documented) at patient's floor/unit and/or counseling patient: - Narrative A/P Narrative: Afib with RVR:HR at baseline at rest, worse with ambulation, related to pain. Change hydrocodone to oxycodone. new prescription given, old removed. Patient ok for D/c can follow up with PCP at discharge. Shortness of breath: resolved, CXR is neg HTN: BP stable, continue present meds CKD creat is stable, has ckd, follows with Dr Morrison CHF: LEEF 40% last year, biatrial enlargement. Patient does not seem clinically to be in overt heart failure, no s3 s5, no edema in extremities, no coarse crackles noted on exam. Continue home dose and monitor. Patient stable for d/c home. Thank you for allowing me to participate in patients care Medical - PN: Qual - VTE Deep Vein Thrombosis/Pulmonary Embolism Present on Admission: No
[2016-09-21] MEDS ORDERED: oxyCODONE HCL 5 MG TABLET PO PRN (09:32)
== END 2016-09-21 12:50 | disposition home or self-care (01) | DRG 483 ==
LOC: MEDSUR 06:54 → ICU 19:17
PROVIDERS: ADMIT Orthopaedic Surgery Sports Medicine; ATTEND Orthopaedic Surgery Sports Medicine

== ENCOUNTER 2017-06-19 05:06 | Inpatient (IN) ==
[2017-06-13 16:52] LABS: Appearance,Urine CLEAR; Bilirubin,Urine NEG (NEG); Color,Urine YELLOW; Glucose,Urine (UA) NEGATIVE (NEG); Leukocyte Esterase,Urine NEG /uL (NEG); Protein,Urine NEG (NEG); Specific Gravity,Urine 1.013 (1.000-1.035); Urine Blood NEG mg/dL (<0.03); Urobilinogen,Urine NEG (NEG)
[2017-06-13 18:32] LABS: Basophils # (Auto) 0 K/mcL (0.0-0.3); Basophils % (Auto) 0.5 % (0.0-2.0); Blood Urea Nitrogen 24 mg/dl (8-23); Eosinophils # (Auto) 0.5 K/mcL (0.0-0.7); Eosinophils % (Auto) 4.4 % (0.0-7.0); Granulocytes % (Auto) 72.5 % (38.0-78.0); Lymphocytes # (Auto) 1.5 K/mcL (1.5-4.8); Lymphocytes % (Auto) 14.5 % (15.5-49.0); Mean Corpuscular HGB Conc 33.3 g/dL (31.0-36.0); Mean Corpuscular Hemoglobin 31.6 pg (26.0-34.0); Monocytes # (Auto) 0.8 K/mcL (0.1-0.9); Monocytes % (Auto) 8.1 % (1.0-12.0); Platelet Count 310 K/mcL (140-440); RBC 3.59 M/mcL (4.50-5.90); Red Cell Distribution Width 16.4 % (11.5-14.5)
[2017-06-19] MEDS ORDERED: CLINDAMYCIN 900 MG in DEXTROSE 5% IN WATER 50 ML IV SCH (06:30)
[2017-06-19] MEDS ORDERED: PHENYLEPHRINE 10 MG/ML VIAL IV ONE (07:30)
[2017-06-19] MEDS ORDERED: NEOSTIGMINE 1 MG/ML VIAL IV ONE (07:30)
[2017-06-19] MEDS ORDERED: ONDANSETRON 4 MG/2 ML VIAL IV ONE (07:30)
[2017-06-19] MEDS ORDERED: fentaNYL 100 MCG/2 ML VIAL IV ONE (07:30)
[2017-06-19] MEDS ORDERED: TRANEXAMIC ACID 1,000 MG/10 ML VIAL IV ONE (07:30)
[2017-06-19] MEDS ORDERED: PROPOFOL 200 MG/20 ML VIAL IV ONE (07:30)
[2017-06-19] MEDS ORDERED: ROCURONIUM 10 MG/ML ML IV ONE (07:30)
[2017-06-19] MEDS ORDERED: ROPIVACAINE HCL/PF 20 ML VIAL IJ ONE (07:30)
[2017-06-19] MEDS ORDERED: LIDOCAINE HCL/PF 100 MG/5 ML SYRINGE IV ONE (07:30)
[2017-06-19] MEDS ORDERED: KETAMINE 100 MG/ML ML IV ONE (07:30)
[2017-06-19] MEDS ORDERED: DEXAMETHASONE 10 MG/ML VIAL IV ONE (07:30)
[2017-06-19] MEDS ORDERED: MIDAZOLAM 5 MG/5 ML VIAL IV ONE (07:30)
[2017-06-19] MEDS ORDERED: GLYCOPYRROLATE 0.2 MG/ML VIAL IV ONE (07:30)
[2017-06-19] MEDS ORDERED: GENTAMICIN SULFATE 800 MG/20 ML VIAL IR ONE (08:08)
[2017-06-19] MEDS ORDERED: fentaNYL 100 MCG/2 ML VIAL IV PRN (08:17)
[2017-06-19] MEDS ORDERED: MEPERIDINE 25 MG/ML SYRINGE IV PRN (08:17)
[2017-06-19] MEDS ORDERED: NALOXONE HCL 0.4 MG/ML VIAL IV PRN (08:17)
[2017-06-19] MEDS ORDERED: METHOCARBAMOL 1,000 MG/10 ML VIAL IV PRN (08:17)
[2017-06-19] MEDS ORDERED: BENZOCAINE/MENTHOL 1 LOZENGE PO PRN (08:17)
[2017-06-19] MEDS ORDERED: LACTATED RINGERS 250 ML IV PRN (08:17)
[2017-06-19] MEDS ORDERED: ACETAMINOPHEN 1,000 MG/100 ML BOTTLE IV ONE (08:17)
[2017-06-19] MEDS ORDERED: ONDANSETRON 4 MG/2 ML VIAL IV PRN ×2 (08:17→09:13)
[2017-06-19] MEDS ORDERED: IPRATROPIUM/ALBUTEROL 3 ML AMPUL.NEB NEB PRN (08:17)
[2017-06-19] MEDS ORDERED: FLUMAZENIL 0.1 MG/ML ML IV PRN (08:17)
[2017-06-19] MEDS ORDERED: LACTATED RINGERS 1,000 ML IV SCH (08:30)
[2017-06-19] MEDS ORDERED: ALBUTEROL SULFATE 1 PUFF INHALER INH PRN (09:10)
[2017-06-19] MEDS ORDERED: traMADol 50 MG TABLET PO PRN (09:10)
--- NOTE | 2017-06-19 09:10 | Brief Operative Note ---
Date of procedure: 06/19/17 Pre-op diagnosis: left shoulder osteoarthritis, proximal biceps tendonitis Post-op diagnosis: same Procedure: left total shoulder arthroplasty, proximal biceps tenodesis Grafts/Implants: Yes Anesthesia: GETA Complications: none Surgeon: Isidro Victoria Wrapper Rewinder: Clementina Mireles Estimated blood loss (cc): 150 Specimens Removed/Pathology: none sent Condition: stable Disposition: PACU
[2017-06-19] MEDS ORDERED: TRANEXAMIC ACID 1,000 MG/10 ML VIAL IV SCH (09:13)
[2017-06-19] MEDS ORDERED: METHOCARBAMOL 750 MG TABLET PO PRN (09:13)
[2017-06-19] MEDS ORDERED: BISACODYL 10 MG SUPP.RECT PR PRN (09:13)
[2017-06-19] MEDS ORDERED: MAGNESIUM HYDROXIDE 30 ML ORAL.SUSP PO PRN (09:13)
[2017-06-19] MEDS ORDERED: POLYETHYLENE GLYCOL 3350 17 GM PACKET PO PRN (09:13)
[2017-06-19] MEDS ORDERED: DEXTROSE 50% 50 ML VIAL IV PRN (09:13)
[2017-06-19] MEDS ORDERED: FLEETS ADULT ENEMA PR PRN (09:13)
[2017-06-19] MEDS ORDERED: ONDANSETRON ODT 4 MG TABLET SL PRN (09:13)
[2017-06-19] MEDS ORDERED: DEXTROSE 31 GM ORAL.SUSP PO PRN (09:13)
--- NOTE | 2017-06-19 09:50 | Operative Note ---
DATE OF OPERATION: 06/19/2017 PREOPERATIVE DIAGNOSES: 1. Left shoulder osteoarthritis. 2. Left shoulder proximal biceps tendinitis. POSTPERATIVE DIAGNOSES: 1. Left shoulder osteoarthritis. 2. Left shoulder proximal biceps tendinitis. PROCEDURE: 1. Left total shoulder arthroplasty. 2. Left shoulder proximal biceps soft tissue tenodesis. SURGEON: Hayden Victoria M.D. TRANSPORTATION OFFICER SURGEON: Clementina Mireles PA-C. ANESTHESIA: General. ESTIMATED BLOOD LOSS: 150 mL. COMPLICATIONS: None noted. SPECIMENS REMOVED: None. DRAINS: None. IMPLANTS: DePuy CMW2 gentamicin bone cement; De[employer]uy [employer] [place] Peg Glenoid Premieron X-Linked polyethylene size 52; DePuy [employer] Unite anatomic proximal body 135 degrees, size 16 [place]; [employer] Unite Por[place]oat standard stem size 16; De[employer]uy [employer] Unite eccentric humeral head size 52 x 18. INDICATIONS: The patient has had a long-standing history of worsening pain in the shoulder that has failed conservative treatment. Radiographs have confirmed advanced degenerative joint disease. After a long discussion about treatment options, the patient elected to proceed with a total shoulder arthroplasty. The risks and benefits were discussed with the patient in detail including, but not limited to, the risks of anesthesia, problems with the heart or lungs related to anesthesia, infection, compromise or injury to the nerves and blood vessels, deep venous thrombosis, pulmonary embolism, pneumonia, continued pain after surgery, worsening pain or symptoms after surgery, swelling, loss of motion, instability, fracture, arm length discrepancy, and need for repeat surgery. DESCRIPTION OF PROCEDURE: The patient was seen in the pre-anesthesia waiting room where all questions were answered and the correct side and site were identified and marked. The patient was transferred to the operating room and administered the anesthetic and given pre-operative antibiotics. A time-out was then called. The patient was placed in the modified beach chair position with all prominences well padded. The extremity was prepped and draped from the fingers up to the neck. A standard deltopectoral skin incision was created. Dissection was carried down to the deltopectoral groove and the cephalic vein was isolated medially and retracted laterally with the deltoid. Retractors were placed and the coracobrachialis was split up to the coracoacromial ligament allowing retraction of the conjoined tendon. We split the subscapularis 1 cm medial to the bicipital groove and extended the split into the rotator interval. This was tagged for later repair. The biceps was cut and a soft tissue tenodesis was performed into the anterior shoulder with #2 FiberWire. A capsular release was performed in a posterior subperiosteal direction along the humerus. The humeral head was then dislocated. We established intramedullary access and hand reamed up to get good cortical chatter with the DePuy Global AP total shoulder instrumentation. We then used the intramedullary guide and set to about 30 degrees of retroversion. The proximal humerus cut was performed and osteophytes were removed. A metal protector plate was then placed. Attention was then turned to the glenoid. Retractors were placed for optimal visualization and the labrum was excised in its entirety. A centralizing Steinmann pin was placed just into the posterior inferior quadrant in a standard fashion. We reamed over the pin to remove all the cartilage and get to a good base for the prosthesis. The drill was then placed over for the central peg. The glenoid was sized and surface was inspected to confirm conformity. The template base-plate was used to drill the three additional pegs, anchoring each with the anti-rotation peg. All bleeding was stopped with epinephrine soaked sponges. Next, we then cemented the anchor peg glenoid with DBX bone paste placed around the anchor peg and Palacos cement in the three additional peg holes. We allowed the cement to harden and checked the stability and placement of the glenoid. Attention was then turned back to the humerus. We set version and broached up to a stable implant. The humeral head trial was placed and good tension, motion, and stability were obtained at this point. Trials were removed and the final press fit humeral prosthesis was impacted into place with measured version. A final check confirmed adequate motion, tension, and stability. We irrigated with 3 liters of antibiotic saline and closed the subscapularis with #2 FiberWire. We irrigated again and closed the deltopectoral interval with several 0 Vicryl figure of eight sutures. The subcutaneous layer was closed with 2-0 Vicryl and the skin was closed with 4-0 Monocryl in a subcuticular fashion. A sterile pressure dressing was applied and the patient was placed into an abduction sling. All needle and sponge counts were correct. The patient was transferred to the recovery room in stable condition. YANNI:madelaine Job ID: [id number] Doc ID: [id number] Hayden Victoria MD
--- NOTE | 2017-06-19 10:28 | XRay Report ---
CLINICAL INFORMATION: Postsurgical follow-up TECHNIQUE: AP and axillary views of the left shoulder COMPARISON: None. FINDINGS: Status post left shoulder arthroplasty. Anatomic alignment. Postsurgical soft tissue gas is present. IMPRESSION: Status post left shoulder arthroplasty. Interpreted and Authenticated by: Isidro Stallworth 06/19/17
[2017-06-19] MEDS: 0.9 % SODIUM CHLORIDE 1,000 ML IV SCH ×3 (10:59→20:15)
[2017-06-19] MEDS: HYDROcodone/APAP 10/325MG TABLET PO PRN ×2 (14:23→20:17)
[2017-06-19] MEDS: INSULIN LISPRO 1 UNIT/0.01 ML UNIT SQ SCH ×4 (14:25→21:01)
[2017-06-19] MEDS: 0.9 % SODIUM CHLORIDE 10 ML SYRINGE IV SCH ×2 (14:25→21:27)
[2017-06-19] MEDS: CLINDAMYCIN 900 MG in DEXTROSE 5% IN WATER 50 ML IV SCH ×2 (16:04→23:15)
[2017-06-19] MEDS: BENZOCAINE/MENTHOL 1 LOZENGE PO PRN ×4 (16:04→23:35)
[2017-06-19] MEDS: METOPROLOL TARTRATE 50 MG TABLET PO SCH ×2 (17:18→21:01)
[2017-06-19] MEDS ORDERED: SENNOSIDES 1 TABLET PO SCH (21:00)
[2017-06-19] MEDS: DOCUSATE SODIUM 100 MG CAPSULE PO SCH (21:01)
[2017-06-19] MEDS: APIXABAN 5 MG TABLET PO SCH (21:01)
[2017-06-20] MEDS: BENZOCAINE/MENTHOL 1 LOZENGE PO PRN ×2 (02:48→04:48)
[2017-06-20] MEDS: 0.9 % SODIUM CHLORIDE 1,000 ML IV SCH (05:07)
--- NOTE | 2017-06-20 06:36 | Orthopedic Progress Note ---
Subjective Patient information: Note initiated : 06/20/17 at 6:34 am Service Date, if different from initiated Date: [] Patient: Matias oCllado 72 y/o M admitted on 06/19/17 for Left Shoulder Arthroplasty and Poss Open . Chief Complaint: [POD #1 s/p left TSA Patient doing very well this morning, reports very minimal pain. Has been resting well. Urination improving. Denies CP, SOB, numbness or tingling of the extremities. No questions or concerns this morning.] Objective Vital signs: Vital Signs Temp Pulse Resp BP Pulse Ox 06/20/17 03:10 97.4 F 104 H 16 130/72 94 06/20/17 00:00 97.4 F 95 H 16 125/79 95 06/19/17 20:00 97.3 F 98 H 16 129/86 96 06/19/17 16:00 97.5 F 85 115/61 98 06/19/17 12:29 89 113/61 98 06/19/17 12:12 72 99/60 96 06/19/17 11:57 79 90/61 94 06/19/17 11:42 78 94/61 94 06/19/17 11:27 82 100/68 96 06/19/17 11:12 97 H 104/71 96 06/19/17 10:57 94 H 107/74 95 06/19/17 10:42 95 H 101/72 94 06/19/17 10:28 97.3 F 92 H 20 90/63 96 06/19/17 10:20 86 22 88/57 97 06/19/17 10:15 102 H 20 91/60 95 06/19/17 10:10 91 H 20 90/60 96 06/19/17 10:05 100 H 22 90/58 96 06/19/17 10:00 96.3 F L 85 18 88/47 96 06/19/17 09:55 89 10 L 100/73 94 06/19/17 09:48 90 18 86/60 94 06/19/17 09:43 79 10 L 81/55 96 06/19/17 09:38 97.3 F 90 18 86/60 96 Intake and Output 06/19/17 06/20/17 06/20/17 21:59 05:59 13:59 Intake Total 2456 / 2456 1100 / 1100 Output Total 400 / 400 675 / 675 Balance 2055 425 / 425 Intake: IV 1056 / 1056 Sodium Chloride 0.9% 1,000 ml @ 1000 / 1000 125 mls/hr IV .Q8H KEN Rx#: [id number] Cleocin 900 mg In Dextrose 5% 56 / 56 in Water 50 ml @ 100 mls/hr IV Q8H KEN Rx#:[id number] Oral 1400 / 1400 1100 / 1100 Output: Void Amount 400 / 400 675 / 675 Other: Meal Lunch Percent of Meal Consumed 100% Feeding Ability Independent # Voids 1 1 Weight 212 lb 6.4 oz Intake & Output: Intake & Output 06/19/17 06/20/17 06/20/17 21:59 05:59 13:59 Intake Total 2456 / 2456 1100 / 1100 Output Total 400 / 400 675 / 675 Balance 2055 425 / 425 Weight 212 lb 6.4 oz Intake: IV 1056 / 1056 Sodium Chloride 0.9% 1,000 ml @ 1000 / 1000 125 mls/hr IV .Q8H KEN Rx#: [id number] Cleocin 900 mg In Dextrose 5% 56 / 56 in Water 50 ml @ 100 mls/hr IV Q8H KEN Rx#:[id number] Oral 1400 / 1400 1100 / 1100 Output: Void Amount 400 / 400 675 / 675 Other: Meal Lunch Percent of Meal Consumed 100% Feeding Ability Independent # Voids 1 1 Incision: Yes healing, No draining, No red, No swollen, No inflamed, Yes clean and dry Incision clean and dry: Yes Dressing: Yes clean, Yes dry, Yes intact Weight bearing status: non Range of motion: full AROM b/l wrist/hand/forearm Neurological exam IM: Yes alert, Yes oriented X3, Yes motor sensory intact, Yes neurovascular intact Additional Comments: radial pulses 2+ b/l. capillary refill < 3 sec Extremities exam IM: No calf tenderness, Yes normal capillary refill, Yes normal inspection, Yes Foot pink and warm, Yes neurovascular intact - Periperhal Pulses Peripheral pulses: 2+: radial (L), radial (R) - Diagnostic Results Shoulder x-ray: image reviewed (left TSA in good alignment. No fractures. No other acute abnormalities.) - Labs CBC & BMP: 06/20/17 04:50 06/13/17 15:32 Labs: 06/20/17 06/13/17 04:50 15:32 Hgb 10.1 L 11.4 L Hct 30.3 L 34.1 L Assessment and Plan (1) Osteoarthritis, shoulder Assessment: POD #1 s/p left TSA Plan: d/c to home today pain control start physical therapy as soon as possible sling precautions non weight bearing with left arm may shower tomorrow- dermabond instructions follow up in office 10-14 days for post op Status: Acute
[2017-06-20] MEDS: 0.9 % SODIUM CHLORIDE 10 ML SYRINGE IV SCH (07:16)
[2017-06-20] MEDS: INSULIN LISPRO 1 UNIT/0.01 ML UNIT SQ SCH (07:16)
[2017-06-20] MEDS ORDERED: FERROUS SULFATE 325 MG TABLET PO SCH (08:00)
[2017-06-20] MEDS: APIXABAN 5 MG TABLET PO SCH (08:28)
[2017-06-20] MEDS: METOPROLOL TARTRATE 50 MG TABLET PO SCH (08:28)
[2017-06-20] MEDS: DOCUSATE SODIUM 100 MG CAPSULE PO SCH (08:29)
[2017-06-20] MEDS ORDERED: LOSARTAN 50 MG TABLET PO SCH (09:00)
[2017-06-20] MEDS ORDERED: MULTIVIT,THER IRON,CA,FA & MIN 1 TABLET PO SCH (09:00)
[2017-06-20] MEDS ORDERED: ALLOPURINOL 300 MG TABLET PO SCH (09:00)
[2017-06-20] MEDS ORDERED: DILTIAZEM 120 MG CAP.XL.24H PO SCH (09:00)
[2017-06-20] MEDS: HYDROcodone/APAP 10/325MG TABLET PO PRN (09:05)
== END 2017-06-20 09:55 | disposition home or self-care (01) | DRG 483 ==
LOC: MEDSUR 05:06
PROVIDERS: ADMIT Orthopaedic Surgery Sports Medicine; ATTEND Orthopaedic Surgery Sports Medicine